=== PATIENT | male | born 1970 ===

== ENCOUNTER 2021-12-03 05:53 | Day surgery (SDC) | payer OTHER ==
[~2021-12-03] VITALS: Ht 175.3 cm; Wt 104.3 kg
[~2021-12-03 05:53] MED LIST: ALTACE10 MG; NORVASC5 MG; PLAVIX75 MG; TRILIPIX135 MG
[2021-12-03] MEDS ORDERED: PERCOCET 5-3251 EACH PO (10:46)
== END 2021-12-03 13:40 | disposition home or self-care (01) ==
LOC: CIR.AMB 05:53
PROVIDERS: ATTEND Surgery
DX: K64.8 Other hemorrhoids (principal); Z20.822 Contact with and (suspected) exposure to COVID-19; I25.10 Atherosclerotic heart disease of native coronary artery without angina pectoris; Z95.5 Presence of coronary angioplasty implant and graft; Z86.16 Personal history of COVID-19; I10 Essential (primary) hypertension